=== PATIENT | female | born 1960 | race Caucasian/White ===

== ENCOUNTER 2018-08-10 08:26 | Day surgery (SDC) | payer OTHER ==
[2018-08-10] MEDS ORDERED: Lactated Ringers 1,000 ML IV SCH (09:00)
[2018-08-10] MEDS ORDERED: fentaNYL 100 MCG/2 ML SDV ONE (10:01)
[2018-08-10] MEDS ORDERED: Propofol 200 MG/20 ML SDV ONE (10:01)
[2018-08-10] MEDS ORDERED: Midazolam 1 MG/ML 2 ML SDV ONE (10:01)
--- NOTE | 2018-08-10 11:51 | OR ---
DATE OF PROCEDURE: 08/10/2018 PREOPERATIVE DIAGNOSIS: Colon cancer screening. POSTOPERATIVE DIAGNOSES: Small transverse colon and rectal polyps. PROCEDURE PERFORMED: Colonoscopy to the cecum with biopsy resection of small transverse colon and rectal polyps. SURGEON: Scott Paez MD ANESTHESIA: IV anesthesia with monitored anesthesia care. INDICATION: This 58-year-old white female is referred for a screening colonoscopy. She has never had a colonoscopic exam. She recently was diagnosed with breast cancer. I counseled her for the procedure, including risks and alternatives, and she gave her informed consent to proceed. DESCRIPTION OF PROCEDURE: The patient was placed in the left lateral decubitus position. IV anesthesia was administered by the Anesthesia Service. Time-out was held. A rectal exam was performed, which was unremarkable. The flexible video Olympus colonoscope was introduced through her anus, up her rectum and out her colon all the way to the cecum. En route, in the transverse colon, we saw a small polyp which was removed with a couple bites of the biopsy forceps. Once the cecum was reached, the scope was slowly withdrawn examining the mucosa throughout. No other mucosal abnormalities were noted until we reached the rectum. Here, another couple of small polyps immediately adjacent to each other were seen and removed with the biopsy forceps. The scope was brought back in the rectum, where it was retroflexed. The distal rectum appeared unremarkable. The scope was straightened and removed. She tolerated the procedure well. Scott Paez MD /[id number]
== END 2018-08-10 12:06 | disposition home or self-care (01) ==
LOC: JP.SDS 08:26
PROVIDERS: ATTEND Surgery
DX: Z12.11 Encounter for screening for malignant neoplasm of colon (principal); K63.5 Polyp of colon; K62.1 Rectal polyp; C50.919 Malignant neoplasm of unspecified site of unspecified female breast; Z88.0 Allergy status to penicillin
CPT/HCPCS: 36415; 45380; 80053; 80061; 85027; 88305; J2250; J2704; J3010; J7120